=== PATIENT | female | born 2005 | race African-American/Black ===

== ENCOUNTER 2025-04-29 09:30 | Inpatient (IN) | payer OTHER, SELFPAY ==
[~2025-04-29] VITALS: Ht 160 cm; Wt 83.0 kg
[2025-04-29] MEDS: NICOTINE 14 MG/24 HR TRANSDERMAL TD SCH (09:00)
[2025-04-29] MEDS ORDERED: LEXA1TAB2 PO (09:39)
[2025-04-29] MEDS ORDERED: HOME MED LIST COMPLETE! XX SCH (10:00)
[2025-04-29 10:40] LABS: PLATELET COUNT, AUTOMATED 288 10^3/uL (150-450)
[2025-04-29 10:57] LABS: ETHYL ALCOHOL (ETHANOL) < 0.003 % (0.000-0.010)
[2025-04-29 10:59] LABS: AMPHETAMINES LEVEL URINE NEGATIVE (NEGATIVE); BARBITURATES URINE NEGATIVE (NEGATIVE); BENZODIAZEPINES URINE NEGATIVE (NEGATIVE); CANNABINOIDS URINE NEGATIVE (NEGATIVE); COCAINE METABOLITE URINE NEGATIVE (NEGATIVE); METHADONE URINE NEGATIVE (NEGATIVE); OPIATES URINE NEGATIVE (NEGATIVE); PHENCYCLIDINE URINE NEGATIVE (NEGATIVE)
[2025-04-29 10:59] LABS: ALT/SGPT 17 U/L (7.0-40); AST/SGOT 22 U/L (<34); CALCIUM LEVEL 9.3 MG/DL (8.5-10.1); CARBON DIOXIDE LEVEL 25 MMOL/L (20-31); CHLORIDE LEVEL 106 MMOL/L (98-107); CREATININE FOR GFR 0.79 MG/DL (0.55-1.30); GLOMERULAR FILTRATION RATE > 90.0 (>60); POTASSIUM SERUM 4.2 MMOL/L (3.5-5.1); SALICYLATE LEVEL < 3.0 MG/DL (<30); SODIUM LEVEL 141 MMOL/L (136-145)
[2025-04-29 11:20] LABS: HCG, SERUM QUALITATIVE NEGATIVE (NEGATIVE)
[2025-04-29] MEDS ORDERED: LORazepam 1 MG TAB PO PRN (12:55)
[2025-04-29] MEDS ORDERED: MAALOX 30 ML SUSP *UDC PO PRN (12:55)
[2025-04-29] MEDS ORDERED: MOM 30 ML SUSPENSION UDC PO PRN (12:55)
[2025-04-29] MEDS ORDERED: ACETAMINOPHEN 325 MG TAB PO PRN (12:55)
[2025-04-29] MEDS ORDERED: traZODone 50 MG TAB PO PRN (12:55)
[2025-04-29] MEDS ORDERED: HALOPERIDOL 5 MG TAB PO PRN (12:55)
[2025-04-29] MEDS ORDERED: IBUPROFEN 400 MG TAB PO PRN (12:55)
[2025-04-29] MEDS ORDERED: OLANZapine 5 MG TAB PO PRN (12:55)
[2025-04-30 06:29] VITALS: BP 127/60; TEMP 97.7; O2SAT 100
[2025-04-30] MEDS: ESCITALOPRAM OXALATE 10 MG TABLET PO SCH (08:24)
[2025-04-30] MEDS: busPIRone 5 MG TAB PO SCH (11:31)
[2025-04-30 15:11] VITALS: BP 148/82; TEMP 97.3; O2SAT 97
[2025-05-01 06:39] VITALS: BP 132/64; TEMP 97.7; O2SAT 100
[2025-05-01 14:40] VITALS: BP 141/81; TEMP 97.6; O2SAT 100
[2025-05-02 06:38] VITALS: BP 136/65; TEMP 97.1; O2SAT 100
[2025-05-02 15:02] VITALS: BP 136/78; TEMP 98; O2SAT 100
[2025-05-03 06:00] VITALS: BP 131/66; TEMP 97.6; O2SAT 100
[2025-05-03] MEDS ORDERED: BUSP5TA PO (08:50)
[2025-05-03] MEDS ORDERED: LEXA1TAB2 PO (08:50)
== END 2025-05-03 11:09 | disposition home or self-care (01) | DRG 881 ==
LOC: M ED 09:30 → M ED INP 12:53 → M PSY 14:46
PROVIDERS: ADMIT Internal Medicine; ATTEND Psychiatry & Neurology Psychiatry
DX: F32.A Depression, unspecified (principal); F41.1 Generalized anxiety disorder; Z62.811 Personal history of psychological abuse in childhood; Z56.5 Uncongenial work environment; Z56.6 Other physical and mental strain related to work; Z63.5 Disruption of family by separation and divorce; Z79.899 Other long term (current) drug therapy

== ENCOUNTER → 2025-07-15 | Outpatient (CLI) | payer OTHER ==
[~2025-07-15] MED LIST: BUSP5TA PO; LEXA1TAB2 PO
[2025-07-15 15:52] LABS: PLATELET COUNT, AUTOMATED 247 10^3/uL (150-450)
[2025-07-15 16:53] LABS: HIV 1&2 SCREEN NEGATIVE (NEGATIVE)
[2025-07-15 16:59] LABS: Trichomonas vaginalis (AMP) NOT DETECTED (NEGATIVE)
[2025-07-15 17:01] LABS: HEPATITIS C VIRUS ABY INDEX < 0.02 INDEX (<0.8)
[2025-07-15 17:23] LABS: GC DNA AMPLIFICATION NEGATIVE (NEGATIVE)
== END ==
LOC: M PLALAB 13:46
PROVIDERS: ATTEND Nurse Practitioner Family
DX: Z34.80 Encounter for supervision of other normal pregnancy, unspecified trimester (principal)

== ENCOUNTER → 2025-07-15 | Outpatient (REF) | payer OTHER | LOC: M PLALAB 13:21 | PROVIDERS: ATTEND Nurse Practitioner Family | DX: Z53.9 Procedure and treatment not carried out, unspecified reason (principal) ==

== ENCOUNTER → 2025-08-11 | Outpatient (REF) | payer OTHER | LOC: M PLALAB 14:12 | PROVIDERS: ATTEND Nurse Practitioner Family | DX: Z34.80 Encounter for supervision of other normal pregnancy, unspecified trimester (principal) ==

== ENCOUNTER → 2025-09-08 | Outpatient (CLI) | payer OTHER ==
[2025-09-08 18:13] LABS: ALT/SGPT 30 U/L (7.0-40); AST/SGOT 23 U/L (<34); CREATININE FOR GFR 0.56 MG/DL (0.55-1.30); GLOMERULAR FILTRATION RATE > 90.0 (>60); LDH LACTATE DEHYDROGENASE 170 U/L (120-246)
[2025-09-08 18:19] LABS: PLATELET COUNT, AUTOMATED 232 10^3/uL (150-450)
[2025-09-08 18:28] LABS: TOTAL PROTEIN,RANDOM URINE 19.7 MG/DL (0.0-14.0)
== END ==
LOC: M PLALAB 14:30
PROVIDERS: ATTEND Advanced Practice Midwife
DX: O10.012 Pre-existing essential hypertension complicating pregnancy, second trimester (principal); Z3A.00 Weeks of gestation of pregnancy not specified

== ENCOUNTER → 2025-09-14 | Outpatient (CLI) | payer OTHER | LOC: M WHC 13:35 | PROVIDERS: ATTEND Nurse Practitioner Family | DX: Z34.81 Encounter for supervision of other normal pregnancy, first trimester (principal) ==